=== PATIENT | female | born 1945 | race Caucasian/White ===

== ENCOUNTER 2023-08-11 11:32 | Day surgery (SDC) | payer MEDICARE, OTHER ==
[2023-08-07 13:15] LABS: BASOPHILS % (AUTO) 0.6 % (0-1); EOSINOPHILS # (AUTO) 0.4 X10'3 (0-0.9); EOSINOPHILS % (AUTO) 5.4 % (0-6); HEMATOCRIT 40.2 % (35.0-45.0); HEMOGLOBIN 12.9 g/dl (12.0-16.0); LYMPHOCYTES # (AUTO) 1.4 X10'3 (1.1-4.8); LYMPHOCYTES % (AUTO) 19.4 % (21-51); MEAN CORPUSCULAR HEMOGLOBIN 28.9 PG (27.0-31.0); MEAN CORPUSCULAR HGB CONC 32.1 g/dL (33.0-36.5); MEAN CORPUSCULAR VOLUME 90.2 FL (78-98); MEAN PLATELET VOLUME 8.2 FL (7.4-10.4); MONOCYTES # (AUTO) 0.6 X10'3 (0-0.9); NEUTROPHILS # (AUTO) 4.7 X10'3 (1.8-7.7); NEUTROPHILS % (AUTO) 66.6 % (42-75); PLATELET COUNT 309 X10'3 (140-440); RED BLOOD COUNT 4.46 X10'6 (4.20-5.60); RED CELL DISTRIBUTION WIDTH 14.9 % (11.5-14.5); WHITE BLOOD COUNT 7.1 X10'3 (4.5-11.0)
[2023-08-07 13:29] LABS: APTT 24 SECONDS (22-32); PROTHROMBIN TIME 11.1 SECONDS (9.0-12.0)
[2023-08-07 13:30] LABS: ALBUMIN 3.6 G/DL (3.4-5.0); ANION GAP 10 (8-16); BLOOD UREA NITROGEN 14 MG/DL (7-18); BUN/CREATININE RATIO 15.1 (10.0-20.0); CALCIUM 9.6 MG/DL (8.5-10.1); CHLORIDE 103 MMOL/L (99-107); CHOL/HDL RATIO 3.3 (0.00-4.99); CHOLESTEROL 163 MG/DL (0-200); CREATININE 0.93 MG/DL (0.40-0.90); GLUCOSE 126 MG/DL (70-104); HDL CHOLESTEROL 50 MG/DL (35-60); LDL CHOLESTEROL 91 MG/DL (50-100); POTASSIUM 4.4 MMOL/L (3.5-5.1); SODIUM 140 MMOL/L (135-145); TOTAL CARBON DIOXIDE 27.1 MMOL/L (24-32); TRIGLYCERIDES 131 MG/DL (20-135); eGFR 58 ML/MIN
[2023-08-11] VITALS (8 sets, daily range): BP systolic 131–194; BP diastolic 71–96; PULSE 47–54; RESP 16; TEMP 98; O2SAT 93–98
[~2023-08-11] VITALS: Ht 162.6 cm; Wt 94.3 kg
[2023-08-11] MEDS ORDERED: METF-438 PO (11:58)
[2023-08-11] MEDS ORDERED: LISI40TA13 PO (11:58)
[2023-08-11] MEDS ORDERED: ATOR40TA72 PO (11:58)
[2023-08-11] MEDS ORDERED: BUPR-317 PO (11:58)
[2023-08-11] MEDS ORDERED: LEVEMIR SQ (11:58)
[2023-08-11] MEDS ORDERED: ASPI-1265 PO (11:59)
[2023-08-11] MEDS ORDERED: ASPI-611 PO (12:01)
[2023-08-11] MEDS ORDERED: CARV-50 PO (12:05)
[2023-08-11] MEDS ORDERED: ERGO400C PO (12:07)
[2023-08-11] MEDS ORDERED: CETI10CA19 PO (12:07)
[2023-08-11] MEDS ORDERED: MULT-1085 PO (12:07)
[2023-08-11] MEDS ORDERED: ASCO100031 PO (12:08)
[2023-08-11] MEDS ORDERED: pneumococcal 23-VAL P-sac vacc 25 mcg/0.5ml vial IMVAC ONE (13:15)
[2023-08-11] MEDS: diphenhydrAMINE 25mg capsule PO PRN (13:20)
[2023-08-11] MEDS: LORazepam 0.5 MG tablet PO PRN (13:20)
[2023-08-11] MEDS: normal saline 1,000 ML IV SCH (13:22)
[2023-08-11] MEDS ORDERED: midazolam 1 mg/ML 2ml injection ONE (14:38)
[2023-08-11] MEDS ORDERED: LIDOcaine 1% (10mg/ml) 2ml vial ONE (14:38)
[2023-08-11] MEDS ORDERED: verapamil 2.5 mg/ml inj IV ONE (14:38)
[2023-08-11] MEDS ORDERED: iohexol 350MG/ML 100ml bottle IV ONE (14:39)
[2023-08-11] MEDS ORDERED: fentaNYL/PF 50MCG/1 ML 2ML syringe ONE (14:39)
[2023-08-11] MEDS ORDERED: heparin 1,000unit/ml 10ml vial 10 ML ONE (14:39)
[2023-08-11] MEDS ORDERED: nitroGLYCERIN 500mcg/5mL D5W 5 ML IV ONE (14:42)
[2023-08-11] MEDS ORDERED: iohexol 350 MG/ML 50ML vial IV ONE (15:22)
[2023-08-11] MEDS ORDERED: HYDROcodone/acetaminophen 5mg/325mg tablet PO PRN (16:10)
[2023-08-11] MEDS ORDERED: HYDROcodone/acetaminophen 10/325mg tab PO PRN (16:10)
[2023-08-12 06:20] LABS: ISTAT HGB MIX 11.9 g/dl (12.0-16.0); ISTAT Hct MIX 35 %PCV (35-45); ISTAT O2 SATURATION MIX VENOUS 55 % (60-80); ISTAT SOURCE VEN
[2023-08-12 06:23] LABS: ISTAT HGB MIX 11.9 g/dl (12.0-16.0); ISTAT Hct MIX 35 %PCV (35-45); ISTAT O2 SATURATION MIX VENOUS 89 % (60-80); ISTAT SOURCE BLNK
== END 2023-08-11 18:15 | disposition home or self-care (01) ==
LOC: SSTAY O 11:32
PROVIDERS: ATTEND Student in an Organized Health Care Education/Training Program
DX: I35.0 Nonrheumatic aortic (valve) stenosis (principal); I25.10 Atherosclerotic heart disease of native coronary artery without angina pectoris; I11.0 Hypertensive heart disease with heart failure; I50.9 Heart failure, unspecified; E11.9 Type 2 diabetes mellitus without complications; E78.00 Pure hypercholesterolemia, unspecified; G47.33 Obstructive sleep apnea (adult) (pediatric); Z23 Encounter for immunization; Z79.84 Long term (current) use of oral hypoglycemic drugs; Z79.899 Other long term (current) drug therapy
CPT/HCPCS: 36415; 80048; 80061; 82803; 82948; 85014; 85025; 85610; 85730; 90732; 93005; 93456; 99152; J1644; J2250; J3010; J3490; J7030; Q0163; Q9967; 99153; A6258; A6402; C1751; C1894

== ENCOUNTER 2023-08-18 10:53 | Outpatient (CLI) | payer MEDICARE ==
[~2023-08-18 10:53] MED LIST: ASCO100031 PO; ASPI-1265 PO; ASPI-611 PO; ATOR40TA72 PO; BUPR-561 PO; CARV-50 PO; CETI10CA19 PO; ERGO400C PO; IODIXANOL 320 MG/ML INFUS..BTL 100ML IV ONE; LEVEMIR SQ; LISI40TA13 PO; METF-438 PO; MULT-1085 PO
[2023-08-18 11:49] LABS: BASOPHILS # (AUTO) 0.1 X10'3 (0-0.2); BASOPHILS % (AUTO) 1.2 % (0-1); EOSINOPHILS # (AUTO) 0.5 X10'3 (0-0.9); EOSINOPHILS % (AUTO) 5.6 % (0-6); HEMATOCRIT 39.2 % (35.0-45.0); HEMOGLOBIN 12.7 g/dl (12.0-16.0); LYMPHOCYTES # (AUTO) 1.4 X10'3 (1.1-4.8); LYMPHOCYTES % (AUTO) 17.1 % (21-51); MEAN CORPUSCULAR HEMOGLOBIN 29.3 PG (27.0-31.0); MEAN CORPUSCULAR HGB CONC 32.5 g/dL (33.0-36.5); MEAN CORPUSCULAR VOLUME 90.1 FL (78-98); MEAN PLATELET VOLUME 8.8 FL (7.4-10.4); MONOCYTES # (AUTO) 0.7 X10'3 (0-0.9); NEUTROPHILS # (AUTO) 5.8 X10'3 (1.8-7.7); NEUTROPHILS % (AUTO) 68.1 % (42-75); PLATELET COUNT 321 X10'3 (140-440); RED BLOOD COUNT 4.35 X10'6 (4.20-5.60); RED CELL DISTRIBUTION WIDTH 15.1 % (11.5-14.5); WHITE BLOOD COUNT 8.4 X10'3 (4.5-11.0)
[2023-08-18 12:01] LABS: APTT 23 SECONDS (22-32); PROTHROMBIN TIME 10.9 SECONDS (9.0-12.0)
[2023-08-18 12:20] LABS: CHLORIDE 104 MMOL/L (99-107); GLUCOSE 196 MG/DL (70-104); POTASSIUM 4.3 MMOL/L (3.5-5.1); SODIUM 141 MMOL/L (135-145)
[2023-08-18 12:21] LABS: ALANINE AMINOTRANSFERASE 21 U/L (12-78); ALBUMIN 3.4 G/DL (3.4-5.0); ALBUMIN/GLOBULIN RATIO 0.9 (1.1-1.5); ALKALINE PHOSPHATASE 46 IU/L (46-116); ANION GAP 9 (8-16); ASPARTATE AMINO TRANSFERASE 17 U/L (10-37); BILIRUBIN,TOTAL 0.4 MG/DL (0.1-1.0); BLOOD UREA NITROGEN 15 MG/DL (7-18); BUN/CREATININE RATIO 14.7 (10.0-20.0); CALCIUM 9.5 MG/DL (8.5-10.1); CREATININE 1.02 MG/DL (0.40-0.90); PRO BRAIN NATRIURETIC PEPTIDE 836 PG/ML (0-450); TOTAL PROTEIN 7.1 G/DL (6.4-8.2); eGFR 53 ML/MIN
== END 2023-08-18 23:59 | disposition home or self-care (01) ==
LOC: RAD 10:53
PROVIDERS: ATTEND Internal Medicine Cardiovascular Disease
DX: I35.0 Nonrheumatic aortic (valve) stenosis (principal); R06.02 Shortness of breath; I65.29 Occlusion and stenosis of unspecified carotid artery
CPT/HCPCS: 36415; 71046; 71275; 74174; 75572; 80053; 83880; 85025; 85610; 85730; Q9967

== ENCOUNTER 2023-08-28 12:38 | Outpatient (CLI) | payer MEDICARE, OTHER | END 2023-08-28 23:59 | disposition home or self-care (01) | LOC: RAD 12:38 | PROVIDERS: ATTEND Internal Medicine Cardiovascular Disease | DX: I35.0 Nonrheumatic aortic (valve) stenosis (principal); I65.29 Occlusion and stenosis of unspecified carotid artery; R06.02 Shortness of breath; Z90.710 Acquired absence of both cervix and uterus | CPT/HCPCS: 36415; 71046; 71275; 74174; 75572; 80053; 83880; 85025; 85610; 85730; Q9967 ==

== ENCOUNTER 2024-01-07 15:23 | Inpatient (IN) | payer MEDICARE ==
[~2024-01-07] VITALS: Ht 162.6 cm; Wt 91.2 kg
[~2024-01-07 15:23] MED LIST changes: -ASPI-1265 PO; -ASPI-611 PO; -CARV-50 PO; -CETI10CA19 PO; +CLOP75TA34 PO; +FLUO40CA PO; -IODIXANOL 320 MG/ML INFUS..BTL 100ML IV ONE; -LEVEMIR SQ; -LISI40TA13 PO; -METF-438 PO; +VITAMIN B12 PO
[2024-01-07] MEDS: normal saline 1000ml 1,000 ML IV ONE (15:41)
[2024-01-07 16:13] LABS: BASOPHILS # (AUTO) 0.1 X10'3 (0-0.2); BASOPHILS % (AUTO) 0.6 % (0-1); EOSINOPHILS # (AUTO) 0.4 X10'3 (0-0.9); EOSINOPHILS % (AUTO) 4.3 % (0-6); HEMATOCRIT 36.8 % (35.0-45.0); HEMOGLOBIN 12.4 g/dl (12.0-16.0); LYMPHOCYTES # (AUTO) 1.5 X10'3 (1.1-4.8); LYMPHOCYTES % (AUTO) 17.1 % (21-51); MEAN CORPUSCULAR HEMOGLOBIN 30.8 PG (27.0-31.0); MEAN CORPUSCULAR HGB CONC 33.5 g/dL (33.0-36.5); MEAN CORPUSCULAR VOLUME 91.9 FL (78-98); MEAN PLATELET VOLUME 9.1 FL (7.4-10.4); MONOCYTES # (AUTO) 0.8 X10'3 (0-0.9); NEUTROPHILS # (AUTO) 5.9 X10'3 (1.8-7.7); PLATELET COUNT 205 X10'3 (140-440); RED BLOOD COUNT 4.01 X10'6 (4.20-5.60); RED CELL DISTRIBUTION WIDTH 14.1 % (11.5-14.5); WHITE BLOOD COUNT 8.5 X10'3 (4.5-11.0)
[2024-01-07 16:23] LABS: ALANINE AMINOTRANSFERASE 12 U/L (12-78); ALBUMIN 3.3 G/DL (3.4-5.0); ALKALINE PHOSPHATASE 48 IU/L (46-116); ANION GAP 6 (8-16); ASPARTATE AMINO TRANSFERASE 21 U/L (10-37); BILIRUBIN,TOTAL 0.5 MG/DL (0.1-1.0); BLOOD UREA NITROGEN 18 MG/DL (7-18); BUN/CREATININE RATIO 16.1 (10.0-20.0); CALCIUM 9.1 MG/DL (8.5-10.1); CHLORIDE 103 MMOL/L (99-107); CREATININE 1.12 MG/DL (0.40-0.90); GLUCOSE 145 MG/DL (70-104); POTASSIUM 4.6 MMOL/L (3.5-5.1); SODIUM 138 MMOL/L (135-145); TOTAL CARBON DIOXIDE 28.6 MMOL/L (24-32); TOTAL PROTEIN 6.7 G/DL (6.4-8.2); eCRCL 36 ML/MIN; eGFR 47 ML/MIN
[2024-01-07 16:31] LABS: PRO BRAIN NATRIURETIC PEPTIDE 2538 PG/ML (0-450)
[2024-01-07] MEDS ORDERED: potassium Cl 40MEQ/1/2NS 520ml 520 ML IV PRN (16:45)
[2024-01-07] MEDS ORDERED: cloNIDine 0.1 mg tablet PO PRN (16:45)
[2024-01-07] MEDS ORDERED: magnesium Cl slow-release 64mg tablet PO PRN (16:45)
[2024-01-07] MEDS ORDERED: magnesium sulf-water 4G/100mL 100 ML IV PRN (16:45)
[2024-01-07] MEDS ORDERED: magnesium sulf-water 2g/50mL 50 ML IV PRN (16:45)
[2024-01-07] MEDS ORDERED: HYDROcodone/acetaminophen 5mg/325mg tablet PO PRN (16:45)
[2024-01-07] MEDS ORDERED: ondansetron/PF 4mg/2ml inj IV PRN (16:45)
[2024-01-07] MEDS ORDERED: magnesium hydroxide 30ml (MOM) UD suspension PO PRN (16:45)
[2024-01-07] MEDS ORDERED: HYDROcodone/acetaminophen 10/325mg tab PO PRN (16:45)
[2024-01-07] MEDS ORDERED: acetaminophen 325mg tablet PO PRN (16:45)
[2024-01-07] MEDS ORDERED: mag hydrox/Alum hydrox/simeth 30ml oral suspension PO PRN (16:45)
[2024-01-07] MEDS ORDERED: potassium Cl 20 mEq SR tablet PO PRN ×2 (16:45)
[2024-01-07] MEDS: atorvastatin 20mg tablet PO SCH (17:10)
[2024-01-07 17:52] LABS: BILIRUBIN,URINE NEGATIVE (Neg); CLARITY,URINE CLOUDY (Clear); COLOR,URINE YELLOW (Yellow); GLUCOSE, URINE NEGATIVE (Neg); KETONES,URINE NEGATIVE (Neg); LEUKOCYTE ESTERASE ,URINE SMALL (Neg); NITRITES, URINE POSITIVE (Neg); OCCULT BLOOD,URINE NEGATIVE (Neg); PH,URINE 6.5 (4.8-8.0); PROTEIN,URINE NEGATIVE (Neg); UROBILINOGEN,URINE 0.2 E.U/dL (0.2-1.0)
[2024-01-07 17:57] LABS: UA COLLECTION TYPE CLN CATCH MIDSTREAM
[2024-01-07 17:59] LABS: BACTERIA,URINE 4+ /HPF (Neg); MUCUS STRANDS NONE SEEN /LPF (Neg); RBC,URINE 0-2 /HPF (0-2); SQUAMOUS EPITHELIAL CELL,UR MODERATE /LPF (FEW); WBC CLUMPS,URINE FEW /HPF (NEGATIVE); WBC,URINE 20-30 /HPF (0-4)
[2024-01-07] MEDS ORDERED: DULA0.75 SQ (18:16)
[2024-01-07 19:30] VITALS: BP 130/63; PULSE 60; RESP 18; TEMP 98.4; O2SAT 97
[2024-01-07] MEDS: docusate sod 100mg capsule PO SCH (20:00)
[2024-01-07] MEDS: K and/or MAG REPLACEMENT MC SCH (20:00)
[2024-01-07 22:00] VITALS: BP 131/75; PULSE 58; RESP 16; TEMP 97; O2SAT 98
[2024-01-08] VITALS (8 sets, daily range): BP systolic 107–152; BP diastolic 40–85; PULSE 51–63; RESP 12–20; TEMP 97–97.8; O2SAT 93–99
[2024-01-08] MEDS: acetaminophen 325mg tablet PO PRN (03:31)
[2024-01-08 07:20] LABS: BASOPHILS # (AUTO) 0.1 X10'3 (0-0.2); BASOPHILS % (AUTO) 1.1 % (0-1); EOSINOPHILS # (AUTO) 0.5 X10'3 (0-0.9); EOSINOPHILS % (AUTO) 5.4 % (0-6); HEMATOCRIT 34.3 % (35.0-45.0); HEMOGLOBIN 11.4 g/dl (12.0-16.0); LYMPHOCYTES # (AUTO) 1.7 X10'3 (1.1-4.8); LYMPHOCYTES % (AUTO) 18.9 % (21-51); MEAN CORPUSCULAR HEMOGLOBIN 31.2 PG (27.0-31.0); MEAN CORPUSCULAR HGB CONC 33.4 g/dL (33.0-36.5); MEAN CORPUSCULAR VOLUME 93.5 FL (78-98); MEAN PLATELET VOLUME 8.9 FL (7.4-10.4); MONOCYTES # (AUTO) 0.9 X10'3 (0-0.9); MONOCYTES % (AUTO) 9.9 % (2-12); NEUTROPHILS # (AUTO) 5.8 X10'3 (1.8-7.7); NEUTROPHILS % (AUTO) 64.7 % (42-75); PLATELET COUNT 184 X10'3 (140-440); RED BLOOD COUNT 3.67 X10'6 (4.20-5.60); RED CELL DISTRIBUTION WIDTH 14.7 % (11.5-14.5)
[2024-01-08 07:48] LABS: ALANINE AMINOTRANSFERASE 10 U/L (12-78); ALBUMIN 2.8 G/DL (3.4-5.0); ALBUMIN/GLOBULIN RATIO 0.9 (1.1-1.5); ALKALINE PHOSPHATASE 47 IU/L (46-116); ANION GAP 6 (8-16); ASPARTATE AMINO TRANSFERASE 16 U/L (10-37); BILIRUBIN,TOTAL 0.6 MG/DL (0.1-1.0); BLOOD UREA NITROGEN 17 MG/DL (7-18); BUN/CREATININE RATIO 17.5 (10.0-20.0); CALCIUM 8.6 MG/DL (8.5-10.1); CHLORIDE 106 MMOL/L (99-107); CREATININE 0.97 MG/DL (0.40-0.90); GLUCOSE 97 MG/DL (70-104); MAGNESIUM 1.6 MG/DL (1.5-2.4); POTASSIUM 4.1 MMOL/L (3.5-5.1); SODIUM 141 MMOL/L (135-145); TOTAL CARBON DIOXIDE 29.1 MMOL/L (24-32); TOTAL PROTEIN 5.8 G/DL (6.4-8.2); eCRCL 42 ML/MIN; eGFR 56 ML/MIN
[2024-01-08] MEDS: aspirin 325mg tablet PO SCH (08:29)
[2024-01-08] MEDS: enoxaparin 40mg/0.4ml syringe SUBCUT SCH (08:30)
[2024-01-08] MEDS ORDERED: iohexol 350MG/ML 100ml bottle IV ONE (12:14)
[2024-01-08] MEDS ORDERED: dextrose 50%-water 50ml dispensing syringe IV PRN ×2 (13:45)
[2024-01-08] MEDS ORDERED: DEXTROSE 15 GM of carb/4 tabs (each vial/BOTTLE has 4 tablets) PO PRN ×2 (13:45)
[2024-01-08] MEDS ORDERED: glucagon, human recombinant 1mg kit SUBCUT PRN (13:45)
[2024-01-08] MEDS: INSULIN LISPRO 100 UNIT/ML INSULN.PEN MULTI-DOSE SQ SCH (17:00)
[2024-01-08] MEDS: CefTRIAXone/D5W-Rocephin 1gm 50 ML IV ONE (21:34)
[2024-01-09 02:00] VITALS: BP 143/54; PULSE 56; RESP 19; TEMP 98.4; O2SAT 96
[2024-01-09 06:00] VITALS: BP 160/59; PULSE 64; RESP 20; TEMP 97.6; O2SAT 92
[2024-01-09 07:00] VITALS: RESP 20; O2SAT 92
[2024-01-09] MEDS: CefTRIAXone/D5W-Rocephin 1gm 50 ML IV SCH (07:12)
[2024-01-09] MEDS: multivitamins, therapeutics tablet PO SCH (07:13)
[2024-01-09] MEDS: FLUoxetine 20mg capsule PO SCH (07:13)
[2024-01-09] MEDS: cholecalciferol (vitamin D3) 400 unit (10mcg) tablet PO SCH (07:13)
[2024-01-09] MEDS: clopidogrel 75mg tablet PO SCH (07:14)
[2024-01-09] MEDS: BUPROPION HCL 150MG XL 24 HR 150 MG TAB PO SCH (07:14)
[2024-01-09] MEDS: atorvastatin 20mg tablet PO SCH (07:14)
[2024-01-09] MEDS: ascorbic acid 500mg tablet PO SCH (07:14)
[2024-01-09 08:59] LABS: BASOPHILS # (AUTO) 0.1 X10'3 (0-0.2); EOSINOPHILS # (AUTO) 0.6 X10'3 (0-0.9); EOSINOPHILS % (AUTO) 8.1 % (0-6); HEMATOCRIT 35.7 % (35.0-45.0); HEMOGLOBIN 11.8 g/dl (12.0-16.0); LYMPHOCYTES # (AUTO) 1.4 X10'3 (1.1-4.8); MEAN CORPUSCULAR HEMOGLOBIN 30.7 PG (27.0-31.0); MEAN CORPUSCULAR HGB CONC 33.1 g/dL (33.0-36.5); MEAN CORPUSCULAR VOLUME 92.7 FL (78-98); MEAN PLATELET VOLUME 8.9 FL (7.4-10.4); MONOCYTES # (AUTO) 0.7 X10'3 (0-0.9); MONOCYTES % (AUTO) 9.9 % (2-12); NEUTROPHILS # (AUTO) 4.1 X10'3 (1.8-7.7); PLATELET COUNT 182 X10'3 (140-440); RED BLOOD COUNT 3.85 X10'6 (4.20-5.60); RED CELL DISTRIBUTION WIDTH 14.3 % (11.5-14.5); WHITE BLOOD COUNT 6.9 X10'3 (4.5-11.0)
[2024-01-09 09:35] LABS: ALANINE AMINOTRANSFERASE 11 U/L (12-78); ALBUMIN 2.9 G/DL (3.4-5.0); ALBUMIN/GLOBULIN RATIO 0.9 (1.1-1.5); ALKALINE PHOSPHATASE 49 IU/L (46-116); ANION GAP 6 (8-16); ASPARTATE AMINO TRANSFERASE 14 U/L (10-37); BILIRUBIN,TOTAL 0.4 MG/DL (0.1-1.0); BLOOD UREA NITROGEN 20 MG/DL (7-18); BUN/CREATININE RATIO 24.7 (10.0-20.0); CALCIUM 9.2 MG/DL (8.5-10.1); CHLORIDE 105 MMOL/L (99-107); CREATININE 0.81 MG/DL (0.40-0.90); GLUCOSE 113 MG/DL (70-104); MAGNESIUM 1.7 MG/DL (1.5-2.4); POTASSIUM 3.9 MMOL/L (3.5-5.1); SODIUM 140 MMOL/L (135-145); TOTAL CARBON DIOXIDE 29.2 MMOL/L (24-32); TOTAL PROTEIN 6.3 G/DL (6.4-8.2); eCRCL 50 ML/MIN; eGFR 69 ML/MIN
[2024-01-09] MEDS ORDERED: ASPI-1 PO (11:44)
[2024-01-09] MEDS ORDERED: CARV3.12 PO (12:08)
[2024-01-09] MEDS ORDERED: LEVO-65 PO (12:08)
== END 2024-01-09 14:53 | disposition home or self-care (01) | DRG 68 ==
LOC: ER 15:24 → ED HOLD 16:48 → PCU 3S 19:38
PROVIDERS: ADMIT Internal Medicine; ATTEND Internal Medicine
PROC: 4A10X4Z Monitoring of Central Nervous Electrical Activity, External Approach (ICD-10-PCS; principal; 2024-01-08)
PROC: B3251ZZ Computerized Tomography (CT Scan) of Bilateral Common Carotid Arteries using Low Osmolar Contrast (ICD-10-PCS; 2024-01-08)
PROC: B32G1ZZ Computerized Tomography (CT Scan) of Bilateral Vertebral Arteries using Low Osmolar Contrast (ICD-10-PCS; 2024-01-08)
PROC: B3201ZZ Computerized Tomography (CT Scan) of Thoracic Aorta using Low Osmolar Contrast (ICD-10-PCS; 2024-01-08)
PROC: B3281ZZ Computerized Tomography (CT Scan) of Bilateral Internal Carotid Arteries using Low Osmolar Contrast (ICD-10-PCS; 2024-01-08)
DX: I65.01 Occlusion and stenosis of right vertebral artery (principal); N17.9 Acute kidney failure, unspecified; N39.0 Urinary tract infection, site not specified; E11.9 Type 2 diabetes mellitus without complications; F32.A Depression, unspecified; E78.5 Hyperlipidemia, unspecified; I10 Essential (primary) hypertension; I25.10 Atherosclerotic heart disease of native coronary artery without angina pectoris; I35.0 Nonrheumatic aortic (valve) stenosis; M17.12 Unilateral primary osteoarthritis, left knee; Z96.652 Presence of left artificial knee joint; E66.01 Morbid (severe) obesity due to excess calories; G47.30 Sleep apnea, unspecified; Z68.34 Body mass index [BMI] 34.0-34.9, adult; Z79.02 Long term (current) use of antithrombotics/antiplatelets; Z85.3 Personal history of malignant neoplasm of breast; Z95.2 Presence of prosthetic heart valve; Z90.12 Acquired absence of left breast and nipple; Z79.82 Long term (current) use of aspirin; Z86.73 Personal history of transient ischemic attack (TIA), and cerebral infarction without residual deficits
CPT/HCPCS: 36415; 70450; 70496; 70498; 70551; 71045; 80053; 81001; 82607; 82948; 83735; 83880; 84484; 85025; 86592; 87077; 87081; 87088; 87186; 93005; 93308; 93880; 95816; 96360; 97110; 97116; 97162; 99285; A6449; G0378; J0696; J1650; J1815; J7030; J7040; Q9967